=== PATIENT | female | born 1960 | race Caucasian/White ===

== ENCOUNTER 2019-03-07 17:35 | Emergency (ER) | payer SELFPAY ==
[~2019-03-07] VITALS: Ht 154.9 cm; Wt 66.8 kg
[2019-03-07] MEDS ORDERED: [UNRECOGNIZED DRUG - OTHER] PO (18:02)
[2019-03-07] MEDS ORDERED: KETOROLAC TROMETHAMINE 30 MG/ML VIAL IM ONE (18:30)
[2019-03-07 19:31] VITALS: BP 130/87
== END 2019-03-07 19:33 | disposition home or self-care (01) ==
LOC: EMS 17:39
DX: M25.561 Pain in right knee (principal); M79.89 Other specified soft tissue disorders; Z79.899 Other long term (current) drug therapy
CPT/HCPCS: 96372; 99283; J1885